=== PATIENT | male | born 1960 | race Hispanic/Latino ===

== ENCOUNTER → 2018-06-19 | Outpatient (CLI) | payer MEDICARE ==
--- NOTE | 2018-06-19 09:57 | Diagnostic Imaging Report ---
TECHNIQUE: Magnetic resonance imaging of the LEFT SHOULDER was performed WITHOUT injected contrast. COMPARISON: None available. HISTORY: Left shoulder pain, impingement syndrome FINDINGS: MUSCLES AND TENDONS: Rotator Cuff: Tendons: Partial-thickness tearing of the superior rotator cuff with articular sided tearing of the anterior supraspinatus coronal image 12, interstitial tearing of the conjoined tendon, coronal image 14, and bursal surface tearing of the infraspinatus coronal image 16. Muscles: No focal muscle atrophy. Biceps Tendon: The long head of the biceps tendon is intact and within the intertubercular groove. GLENOHUMERAL JOINT: Glenoid Labrum: No displaced tear. Articular Cartilage: No focal defect. AC JOINT AND ACROMION: Mild hypertrophic degenerative changes of the acromioclavicular joint. Subacromial spurring. BONE: No focal or infiltrative bone marrow replacing abnormality. No acute fracture. SOFT TISSUES: Otherwise, the soft tissues appear unremarkable. IMPRESSION: Partial-thickness tearing of the superior rotator cuff as above. No full-thickness defect, retraction, or atrophy. Subacromial spurring. Signed by: Dr. Cade Loya M.D. on 06/19/2018 9:54 AM
== END ==
LOC: MRI 07:52
PROVIDERS: ATTEND Specialist
DX: M75.42 Impingement syndrome of left shoulder (principal); S46.092A Other injury of muscle(s) and tendon(s) of the rotator cuff of left shoulder, initial encounter

== ENCOUNTER → 2018-07-05 | Outpatient (RCR) | payer MEDICARE | LOC: PT 07-02 08:05 | PROVIDERS: ATTEND Specialist | DX: M75.101 Unspecified rotator cuff tear or rupture of right shoulder, not specified as traumatic (principal); M75.102 Unspecified rotator cuff tear or rupture of left shoulder, not specified as traumatic; M25.512 Pain in left shoulder; M25.511 Pain in right shoulder; M25.612 Stiffness of left shoulder, not elsewhere classified; M62.81 Muscle weakness (generalized) ==

== ENCOUNTER 2018-07-12 07:00 | Outpatient (RCR) | payer MEDICARE | END 2018-08-04 | LOC: PT 07:00 | PROVIDERS: ATTEND Specialist | DX: M75.102 Unspecified rotator cuff tear or rupture of left shoulder, not specified as traumatic (principal); M75.101 Unspecified rotator cuff tear or rupture of right shoulder, not specified as traumatic; M25.512 Pain in left shoulder; M25.511 Pain in right shoulder; M25.612 Stiffness of left shoulder, not elsewhere classified; M62.81 Muscle weakness (generalized) ==

== ENCOUNTER → 2020-09-03 | Day surgery (SDC) | payer MEDICARE, OTHER ==
[~2020-09-03] MED LIST: ACETAMINOPHEN/CODEINE 300MG - 30MG TAB ONE; BUPIVACAINE HCL 0.5% INJ 30 ML VIAL INJ ONE; FENTANYL CITRATE/PF 100MCG/2 ML INJ ONE; INVEGA SUS234 MG/1.5 SC; NEOSTIGMINE 1 MG/ML 10ML VIAL ONE; SODIUM CHLORIDE 0.9% 50ML 50 ML ONE
[2020-09-03 10:10] VITALS: BP 153/86
== END | disposition home or self-care (01) ==
LOC: OR 07:04
PROVIDERS: ATTEND Urology
DX: N47.1 Phimosis (principal); N39.0 Urinary tract infection, site not specified; Z01.810 Encounter for preprocedural cardiovascular examination; F20.9 Schizophrenia, unspecified; N48.1 Balanitis
CPT/HCPCS: 54161; 93005; J0690; J2710; J3010

== ENCOUNTER 2022-03-10 10:41 | Observation (INO) | payer MEDICARE ==
[~2022-03-10] VITALS: Ht 170.2 cm; Wt 83.9 kg
[~2022-03-10 10:41] MED LIST changes: -ACETAMINOPHEN/CODEINE 300MG - 30MG TAB ONE; -BUPIVACAINE HCL 0.5% INJ 30 ML VIAL INJ ONE; -FENTANYL CITRATE/PF 100MCG/2 ML INJ ONE; -NEOSTIGMINE 1 MG/ML 10ML VIAL ONE; -SODIUM CHLORIDE 0.9% 50ML 50 ML ONE
[2022-03-10] MEDS ORDERED: SODIUM CHLORIDE 0.9% 1000ML 1,000 ML IV ONE (11:30)
[2022-03-10] MEDS ORDERED: Morphine 4mg INJECTION 4 MG/ML INJ IV ONE (11:30)
[2022-03-10] MEDS ORDERED: ONDANSETRON HCL INJ 2MG/ML 2ML 2 MG/ML VIAL IV STA (11:30)
[2022-03-10 11:53] LABS: BASOPHILS % 0.3 % (0.0-1.0); EOSINOPHILS # (AUTO) 0.1 (0.0-0.4); EOSINOPHILS % 0.6 % (0.0-6.0); HEMATOCRIT 51.3 % (38.2-49.6); HEMOGLOBIN 16.3 g/dL (14.0-18.0); LYMPHOCYTES # (AUTO) 0.8 (1.0-3.2); LYMPHOCYTES % 7.6 % (18.0-39.1); MEAN CORPUSCULAR HGB CONC 31.8 g/dL (31-35); MEAN CORPUSCULAR VOLUME 100.8 fL (81-99); MONOCYTES # (AUTO) 0.6 (0.2-0.8); MONOCYTES % 5.7 % (4.4-11.3); NEUTROPHILS # (AUTO) 8.4 (2.1-6.9); NEUTROPHILS % 85.4 % (38.7-80.0); PLATELET COUNT 252 x10e3/uL (140-360); RED BLOOD COUNT 5.09 x10e6/uL (4.3-5.7); RED CELL DISTRIBUTION WIDTH 12.9 % (11.7-14.4)
[2022-03-10 12:13] LABS: ALBUMIN 4.1 g/dL (3.5-5.0); ALBUMIN/GLOBULIN RATIO 1.2 (0.8-2.0); ANION GAP 14.1 mmol/L (8-16); CALCIUM 9.3 mg/dL (8.4-10.2); CREATININE, SERUM 0.79 mg/dL (0.72-1.25); POTASSIUM 4.1 mmol/L (3.5-5.1)
[2022-03-10] MEDS ORDERED: IOPAMIDOL 370 MG/ML 100 ML INFUS..BTL INJ ONE (12:39)
[2022-03-10] MEDS ORDERED: ONDANSETRON HCL INJ 2MG/ML 2ML 2 MG/ML VIAL IV PRN (16:45)
[2022-03-10] MEDS ORDERED: Morphine 4mg INJECTION 4 MG/ML INJ IV PRN (16:45)
[2022-03-10] MEDS: SODIUM CHLORIDE 0.9% 1000ML 1,000 ML IV SCH (19:15)
[2022-03-10 20:37] VITALS: BP 125/67
[2022-03-10 21:00] VITALS: BP 125/67
[2022-03-10] MEDS ORDERED: HYDRALAZINE HCL 20 MG/ML VIAL IV PRN (23:15)
[2022-03-10] MEDS ORDERED: MELATONIN 3 MG TAB PO PRN (23:15)
[2022-03-10] MEDS ORDERED: ACETAMINOPHEN 325 MG TAB PO PRN (23:15)
[2022-03-10] MEDS ORDERED: GUAIFENESIN/DEXTROMETHORPHAN LIQD 5 ML UDC PO PRN (23:15)
[2022-03-11] VITALS (10 sets, daily range): BP systolic 133–148; BP diastolic 72–89
[2022-03-11] MEDS: SODIUM CHLORIDE 0.9% 1000ML 1,000 ML IV SCH ×4 (00:45→20:35)
[2022-03-11] MEDS ORDERED: Morphine 2mg Syringe 2 MG/ML SYR IV PRN (00:45)
[2022-03-11 07:24] LABS: BASOPHILS % 0.4 % (0.0-1.0); EOSINOPHILS # (AUTO) 0.2 (0.0-0.4); EOSINOPHILS % 3.4 % (0.0-6.0); HEMATOCRIT 45.7 % (38.2-49.6); HEMOGLOBIN 14.3 g/dL (14.0-18.0); LYMPHOCYTES # (AUTO) 0.8 (1.0-3.2); LYMPHOCYTES % 15.1 % (18.0-39.1); MEAN CORPUSCULAR HEMOGLOBIN 31.8 pg (28-32); MEAN CORPUSCULAR HGB CONC 31.3 g/dL (31-35); MEAN CORPUSCULAR VOLUME 101.8 fL (81-99); MONOCYTES # (AUTO) 0.4 (0.2-0.8); MONOCYTES % 7.8 % (4.4-11.3); NEUTROPHILS # (AUTO) 3.8 (2.1-6.9); NEUTROPHILS % 72.5 % (38.7-80.0); PLATELET COUNT 215 x10e3/uL (140-360); RED BLOOD COUNT 4.49 x10e6/uL (4.3-5.7); RED CELL DISTRIBUTION WIDTH 12.8 % (11.7-14.4)
[2022-03-11 07:59] LABS: ANION GAP 12.8 mmol/L (8-16); CALCIUM 8.1 mg/dL (8.4-10.2); CREATININE, SERUM 0.71 mg/dL (0.72-1.25); POTASSIUM 3.8 mmol/L (3.5-5.1)
[2022-03-11] MEDS: MULTIVITAMINS/MINERALS TAB PO SCH (09:00)
[2022-03-12] VITALS: BP 132/60
[2022-03-12] MEDS ORDERED: PANTOPRAZOLE SO40 MG PO (00:58)
[2022-03-12] MEDS ORDERED: DAILY VITAMIN1 EAC2 PO (00:58)
[2022-03-12] MEDS ORDERED: ONDANSETRON ODT4 MG PO (01:00)
[2022-03-12 04:00] VITALS: BP 123/68
[2022-03-12] MEDS: SODIUM CHLORIDE 0.9% 1000ML 1,000 ML IV SCH (04:56)
[2022-03-12 08:30] VITALS: BP 150/74
[2022-03-12 08:45] VITALS: BP 150/74
[2022-03-12] MEDS: MULTIVITAMINS/MINERALS TAB PO SCH (09:00)
[2022-03-12 09:03] VITALS: BP 150/74
== END 2022-03-12 11:07 | disposition home or self-care (01) ==
LOC: ER 10:55 → INTOOBSV 16:42 → ERHOLD 16:42 → MED/SURG 20:30
PROVIDERS: ADMIT Internal Medicine Critical Care Medicine; ATTEND Internal Medicine Critical Care Medicine
DX: K56.600 Partial intestinal obstruction, unspecified as to cause (principal); F17.210 Nicotine dependence, cigarettes, uncomplicated; F20.9 Schizophrenia, unspecified; K20.90 Esophagitis, unspecified without bleeding; K44.9 Diaphragmatic hernia without obstruction or gangrene; K29.70 Gastritis, unspecified, without bleeding; Z20.822 Contact with and (suspected) exposure to COVID-19
CPT/HCPCS: 36415 ×2; 74018 ×2; 74019; 74177; 80048; 80053; 83690; 84484; 85025 ×2; 93005; 99284; C9113 ×2; G0378 ×3; J2270; J2405; J7030 ×3; Q9967; U0002

== ENCOUNTER → 2022-03-29 | Outpatient (CLI) | payer MEDICARE ==
[~2022-03-29] MED LIST changes: +DAILY VITAMIN1 EAC2 PO; +ONDANSETRON ODT4 MG PO; +PANTOPRAZOLE SO40 MG PO
== END ==
LOC: DX 08:53
PROVIDERS: ATTEND Nurse Practitioner
DX: K59.09 Other constipation (principal)
CPT/HCPCS: 74270